=== PATIENT | female | born 1955 | race Caucasian/White ===

== ENCOUNTER → 2017-03-02 | Outpatient (CLI) | payer OTHER ==
--- NOTE | 2017-03-02 22:17 | MR ---
EXAMINATION TYPE: MR lumbar spine wo con DATE OF EXAM: 03/02/2017 3:50 PM COMPARISON: None at this institution. HISTORY: Low back pain and lumbago with sciatica per order. Left-sided back pain extending into left lower extremity for 1.5 years per patient. TECHNIQUE: Multiplanar, multisequence imaging of the lumbar spine is performed without IV contrast. FINDINGS: Sagittal images of the lumbar spine show vertebral body heights to appear satisfactory. Mul tilevel disc desiccation is seen. There is grade 1 retrolisthesis of L5 on S1. There is mild multilev el disc space narrowing. There is moderate disc space narrowing L4-L5 level. There is moderate to adv anced disc space narrowing most pronounced posteriorly L5-S1 level with vacuum disc phenomenon presen t. Small posterior disc herniations are seen L3-L4 through the L5-S1 levels on sagittal images. The c onus medullaris is low in position ending at inferior L2 vertebral body level. No suspicious signal o r clumping of lumbosacral nerve roots is seen. Mild multilevel anterior spurring is present. The bone marrow signal intensity is within normal limits. Axial images show the T12-L1 level to appear within normal limits. Axial images at L1-L2 and L2-L3 level show mild facet degenerative changes bilaterally but spinal can al is preserved and bilateral neural foramina are patent. Axial images at L3-L4 level show mild facet degenerative changes bilaterally. There is mild broad dis c bulge mildly effacing anterior thecal sac and axial image 13. Bilateral neural foramina are patent. Axial images at L4-L5 level show mild/moderate facet degenerative changes and ligamentum flavum hyper trophy with effacement of the posterior lateral thecal sac on axial image 7. There is broad-based pos terior disc protrusion mildly effacing the anterior thecal sac. There is mild bilateral anterior infe rior neural foraminal narrowing at this level identified. Axial images at the L5-S1 level show mild/moderate facet degenerative changes bilaterally with ligame ntum flavum hypertrophy effacing the posterior lateral thecal sac. There is broad-based posterior dis c protrusion mildly effacing anterior thecal sac and axial image 3. There is mild to moderate left an d mild right-sided neural foraminal narrowing at this level identified. There are prominent central parapelvic cysts in the left kidney. IMPRESSION: Multilevel degenerative changes in the lumbar spine most prominent in lower lumbar levels as detailed above however no significant finding is seen to account for patient's left-sided radicul opathy type symptoms.
== END | disposition home or self-care (01) ==
LOC: RADMRIMAIN 14:51
PROVIDERS: ATTEND Nurse Practitioner Family
DX: M47.26 Other spondylosis with radiculopathy, lumbar region (principal)
CPT/HCPCS: 72148

== ENCOUNTER 2017-11-18 08:36 | Emergency (ER) | payer BC, OTHER ==
[2017-11-18 08:41] VITALS: TEMP 98.1
[2017-11-18] MEDS ORDERED: KETOROLAC 30 MG/ML 1 ML VIAL IVP STA (09:15)
[2017-11-18 09:28] LABS: Basophils % (A) 1 %; Eosinophils # (A) 0.1 k/uL (0-0.7); Eosinophils % (A) 1 %; HCT 41.3 % (34.0-46.0); HGB 14.1 gm/dL (11.4-16.0); Lymphocytes # (A) 1.7 k/uL (1.0-4.8); Lymphocytes % (A) 26 %; MCH 31.4 pg (25.0-35.0); MCHC 34.1 g/dL (31.0-37.0); MCV 92.2 fL (80.0-100.0); Mean Platelet Volume 7.3; Monocytes # (A) 0.4 k/uL (0-1.0); Monocytes % (A) 6 %; Neutrophils # (A) 4.1 k/uL (1.3-7.7); Neutrophils % (A) 65 %; Platelet Count 274 k/uL (150-450); RBC 4.47 m/uL (3.80-5.40); RDW 12.6 % (11.5-15.5); WBC 6.3 k/uL (3.8-10.6)
[2017-11-18 09:40] LABS: ALT 36 U/L (9-52); AST 27 U/L (14-36); Albumin 4.4 g/dL (3.5-5.0); Alkaline Phosphatase 59 U/L (38-126); Amylase 61 U/L (30-110); Anion Gap 10 mmol/L; Blood Urea Nitrogen 21 mg/dL (7-17); Calcium 10.7 mg/dL (8.4-10.2); Carbon Dioxide 27 mmol/L (22-30); Chloride 106 mmol/L (98-107); Glucose 90 mg/dL (74-99); Lipase 82 U/L (23-300); Magnesium 2.1 mg/dL (1.6-2.3); Potassium 4.3 mmol/L (3.5-5.1); Sodium 143 mmol/L (137-145); Total Bilirubin 0.5 mg/dL (0.2-1.3); Total Protein 6.7 g/dL (6.3-8.2)
--- NOTE | 2017-11-18 09:53 | XR ---
EXAMINATION TYPE: XR chest 2V DATE OF EXAM: 11/18/2017 HISTORY: Chest Pain. REFERENCE: NONE. FINDINGS: Heart size upper limits of normal. The lungs are clear. Pleural spaces are clear. There is unfolding of the thoracic aorta. IMPRESSION: BORDERLINE CARDIOMEGALY.
[2017-11-18 09:58] LABS: Creatine Kinase 102 U/L (30-135)
[2017-11-18 10:11] LABS: Troponin I <0.012 ng/mL (0.000-0.034)
[2017-11-18 10:13] LABS: D-Dimer 0.31 mg/L FEU (<0.60); Partial Thromboplastin Time 22.1 sec (22.0-30.0)
[2017-11-18 10:33] VITALS: BP 157/97; PULSE 73; RESP 16
--- NOTE | 2017-11-18 11:20 | ED ---
Chest Pain HPI - General Chief Complaint: Chest Pain Stated Complaint: Pain down left arm/chest pain Time Seen by Provider: 11/18/17 08:49 Source: patient, RN notes reviewed Mode of arrival: ambulatory Limitations: no limitations - History of Present Illness Initial Comments: This is a 62-year-old female with a benign past medical history who states she has some left-sided shoulder pain and left arm pain today. She states she woke up with it he states he gets worse with movements especially if she leans on her left shoulder also she has pain radiating from her neck no fevers chills nausea vomiting sweats cough early other complaints at this time. She states is sharp in nature mild in severity. MD Complaint: chest pain, other - Related Data Home Medications Medication Instructions Recorded Confirmed Ibuprofen [Motrin] 800 mg PO Q8H PRN 11/18/17 11/18/17 traMADol HCL [Ultram] 50 mg PO Q4HR PRN 11/18/17 11/18/17 Previous Rx's Medication Instructions Recorded Cyclobenzaprine [Flexeril] 10 mg PO TID #14 tab 11/18/17 Ibuprofen 800 mg PO Q6HR PRN #20 tablet 11/18/17 Allergies Allergy/AdvReac Type Severity Reaction Status Date / Time codeine Allergy Nausea Verified 11/18/17 10:29 Review of Systems ROS Statement: Those systems with pertinent positive or pertinent negative responses have been documented in the HPI. ROS Other: All systems not noted in ROS Statement are negative. EKG Findings - EKG Results: EKG: interpreted by ERMD, sinus rhythm (Sinus rhythm rate of 80. Interval 140 QRS duration 78 QT since QTC 364/[address] configuration.) Past Medical History Additional Past Medical History / Comment(s): sciatica, back pain History of Any Multi-Drug Resistant Organisms: None Reported Past Psychological History: No Psychological Hx Reported Smoking Status: Never smoker Past Alcohol Use History: None Reported Past Drug Use History: None Reported General Exam - General Exam Comments Initial Comments: This is a well-developed well-nourished awake alert oriented 3 female in no acute distress Limitations: no limitations General appearance: alert, in no apparent distress Head exam: Present: atraumatic, normocephalic, normal inspection Eye exam: Present: normal appearance, PERRL, EOMI. Absent: scleral icterus, conjunctival injection, periorbital swelling ENT exam: Present: normal exam, mucous membranes moist Neck exam: Present: normal inspection, tenderness (Some mild tenderness to left lateral trapezius muscles does reproduce some of the patient's pain.). Absent: meningismus, lymphadenopathy Respiratory exam: Present: normal lung sounds bilaterally. Absent: respiratory distress, wheezes, rales, rhonchi, stridor Cardiovascular Exam: Present: regular rate, normal rhythm, normal heart sounds. Absent: systolic murmur, diastolic murmur, rubs, gallop, clicks GI/Abdominal exam: Present: soft, normal bowel sounds. Absent: distended, tenderness, guarding, rebound, rigid Extremities exam: Present: normal inspection, full ROM, tenderness (Is palpation over the left shoulder musculature no sensorimotor vascular deficits or crepitation on palpation), normal capillary refill. Absent: pedal edema, joint swelling, calf tenderness Back exam: Present: normal inspection Neurological exam: Present: alert, oriented X3, CN II-XII intact Psychiatric exam: Present: normal affect, normal mood Skin exam: Present: warm, dry, intact, normal color. Absent: rash Course Vital Signs 11/18/17 11/18/17 08:38 10:33 Temperature 98.1 F Pulse Rate 86 73 Respiratory 20 16 Rate Blood Pressure 181/88 157/97 O2 Sat by Pulse 99 98 Oximetry Chest Pain MDM - MDM I did review the x-ray and report no acute findings. Patient still has some reproducible pain no other pain in his 40s this time the presentation is consistent with a musculoskeletal etiology. I did discuss the findings with the patient she will be discharged and placed on anti-inflammatories I did recommend she do follow-up with her doctor and did recommend outpatient stress test Disposition Clinical Impression: Chest wall syndrome Disposition: HOME SELF-CARE Condition: Good Instructions: Chest Wall Pain (ED), Shoulder Pain (ED) Prescriptions: Cyclobenzaprine [Flexeril] 10 mg PO TID #14 tab Ibuprofen 800 mg PO Q6HR PRN #20 tablet PRN Reason: Pain Referrals: Fadia Sanders MD [Primary Care Provider] - 1-2 days
== END 2017-11-18 11:32 | disposition home or self-care (01) ==
LOC: EC 08:36
DX: R07.1 Chest pain on breathing (principal); M25.512 Pain in left shoulder; Z88.5 Allergy status to narcotic agent
CPT/HCPCS: 36415; 93005; 85379; 83880; 80053; 82150; 82550; 82553; 83690; 83735; 84484; 85025; 85610; 85730; 71046; 99285; 96374; J1885

== ENCOUNTER → 2018-08-01 | Outpatient (CLI) | payer MEDICARE ==
--- NOTE | 2018-08-01 14:12 | BD ---
EXAMINATION TYPE: Axial Bone Density DATE OF EXAM: 08/01/2018 COMPARISON: NONE CLINICAL HISTORY: Height: 65 Weight: 159.5 FRAX RISK QUESTIONS: Alcohol (3 or more units per day): no Family History (Parent hip fracture): yes Glucocorticoids (More than 3mos): no (Ex: prednisone, prednisolone, methylprednisolone, dexamethasone, and hydrocortisone). History of Fracture in Adulthood: no Secondary Osteoporosis: 1. Type 1 Diabetes: no 2. Hyperthyroidism: no 3. Menopause before 45: yes 4. Malnutrition: no 5. Chronic liver disease: no Rheumatoid Arthritis: no Current Tobacco Use: no RISK FACTORS HISTORY OF: Family History of Osteoporosis: no Active: yes Diet low in dairy products/other sources of calcium: yes Postmenopausal woman: hysterectomy age 37 Lost more than 2 inches in height since high school: no Frequent falls: no MEDICATIONS: Motrin 800 as needed Additional History: EXAM MEASUREMENTS: Bone mineral densitometry was performed using the [employer] System. Bone mineral density as measured about the Lumbar spine is: ----- L1-L4(G/cm2): 1.309 T Score Values are as follows: ----- L2: 0.5 ----- L3: 2.1 ----- L4: 1.6 ----- L1-L4: 1.4 Bone mineral density : baseline Bone mineral density about the R hip (g/cm2): 1.032 Bone mineral density about the L hip (g/cm2): 1.028 T Score values are as follows: -----R Neck: 0.0 -----L Neck: -0.1 -----R Total: 0.6 -----L Total: 0.5 Bone mineral density : baseline IMPRESSION: No evidence for osteoporosis or osteopenia. NOTE: T-SCORE=SD OF THE YOUNG ADULT MEAN.
--- NOTE | 2018-08-02 10:07 | MM ---
Reason for exam: screening (asymptomatic). Last mammogram was performed 2 years and 2 months ago. History: Patient is postmenopausal. Family history of breast cancer in aunt at age 60 and breast cancer in aunt at age 53. Reductions of both breasts, 1998. Physical Findings: A clinical breast exam by your physician is recommended on an annual basis and results should be correlated with mammographic findings. MG 3D Screening Mammo W/Cad Bilateral CC and MLO view(s) were taken. Prior study comparison: June 07, 2016, bilateral MG 3d diag mammo w/cad [facility]. December 03, 2014, right breast MG work up mamm w CAD RT. There are scattered fibroglandular densities. There is chronic nodularity in the right breast. Bilateral mammoplasty changes. No significant changes when compared with prior studies. ASSESSMENT: Benign, BI-RAD 2 RECOMMENDATION: Routine screening mammogram of both breasts in 1 year.
== END | disposition home or self-care (01) ==
LOC: RADMAMWWP 06:52
PROVIDERS: ATTEND Family Medicine
DX: Z12.31 Encounter for screening mammogram for malignant neoplasm of breast (principal); Z78.0 Asymptomatic menopausal state
CPT/HCPCS: 77063; 77067; 77080

== ENCOUNTER → 2020-09-16 | Outpatient (CLI) | payer MEDICARE ==
--- NOTE | 2020-09-17 11:33 | MM ---
Reason for exam: screening (asymptomatic). Last mammogram was performed 2 years and 1 month ago. History: Patient is postmenopausal. Family history of breast cancer in aunt at age 60 and breast cancer in aunt at age 53. Reductions of both breasts, 1998. Physical Findings: A clinical breast exam by your physician is recommended on an annual basis and results should be correlated with mammographic findings. MG 3D Screening Mammo W/Cad Bilateral CC and MLO view(s) were taken. Prior study comparison: August 01, 2018, bilateral MG 3d screening mammo w/cad. June 07, 2016, bilateral MG 3d diag mammo w/cad [facility]. There are scattered fibroglandular densities. No significant changes when compared with prior studies. ASSESSMENT: Benign, BI-RAD 2 RECOMMENDATION: Routine screening mammogram of both breasts in 1 year.
== END | disposition home or self-care (01) ==
LOC: RADMAMWWP 08:40
PROVIDERS: ATTEND Family Medicine
DX: Z12.31 Encounter for screening mammogram for malignant neoplasm of breast (principal)
CPT/HCPCS: 77063; 77067

== ENCOUNTER 2020-11-25 11:25 | Emergency (ER) | payer MEDICARE ==
[2020-11-25 11:34] VITALS: RESP 18; TEMP 97.7
[2020-11-25] MEDS ORDERED: LABETALOL 5 MG/ML VIAL MDV IVP STA (11:46)
--- NOTE | 2020-11-25 11:48 | ED ---
General Adult HPI - General Chief complaint: Recheck/Abnormal Lab/Rx Stated complaint: hypertension, lt sided weakness Time Seen by Provider: 11/25/20 11:33 Source: patient Mode of arrival: ambulatory Limitations: no limitations - History of Present Illness Initial comments: Dictation was produced using [email or web address] dictation software. please excuse any grammatical, word or spelling errors. This patient was cared for during a federal and state declared state of emergency secondary to Covid 19 Chief Complaint: 65-year-old feel presents for left-sided body pain and hypertension. History of Present Illness: 65-year-old female she is here in emergency department today for hypertension and left-sided body pain. Patient states she's been having strange left-sided body pain. She states the pain starts in her left trapezius area and sometimes radiates down her arm. She states that she also has pain in her left arm. She believes from Bryanna pressure cuff when she's been checking her blood pressure. She also has pain down by her left proximal calf. No history of DVT. Patient's fingers were dressed that recently because she is to have a colonoscopy tomorrow. She does not take any medications for blood pressure. Patient denies any numbness or paresthesias to the arms or legs. She is not confused. She has no facial symptoms. Patient states that she's been checking her blood pressures at home and has been having consistently high readings for the last month or so. Patient drank coffee regularly. She does have some pain in her body was not severe. Denies any shortness of breath or chest pain. The ROS documented in this emergency department record has been reviewed and confirmed by me. Those systems with pertinent positive or negative responses have been documented in the HPI. All other systems are other negative and/or noncontributory. PHYSICAL EXAM: General Impression: Alert and oriented x3, not in acute distress HEENT: Normocephalic atraumatic, extra-ocular movements intact, pupils equal and reactive to light bilaterally, mucous membranes moist. Cardiovascular: Heart regular rate and rhythm Chest: Able to complete full sentences, no retractions, no tachypnea Abdomen: abdomen soft, non-tender, non-distended, no organomegaly Musculoskeletal: Pulses present and equal in all extremities, no peripheral edema, tenderness to palpation of proximal calf Motor: no focal deficits noted Neurological: CN II-XII grossly intact, no focal motor or sensory deficits noted Skin: Intact with no visualized rashes Psych: Normal affect and mood ED course: 65-year-old female presents to the emergency department for hypertension and left-sided pain. Vital signs upon arrival shows blood pressure 190/104, rest of vital signs within acceptable limits. Laboratory evaluation obtained. CBC, metabolic panel is unremarkable. Ultrasound of the lower extremity shows small tiny popliteal cyst. No DVT. Patient observed in the emergency department for approximately 2 hours with improvement of blood pressure. Patient discharged. Instructed to follow-up with her PCP for outpatient management of blood pressure. EKG interpretation: Ventricular rate 76, sinus rhythm,. 136, QRS 76, QTC 434. No ID prolongation, no QTC prolongation, no ST or T-wave changes noted. EKG compared to 2017 showing no changes. Overall, this EKG is unremarkable - Related Data Home Medications Medication Instructions Recorded Confirmed Ibuprofen [Motrin] 800 mg PO Q8H PRN 11/18/17 11/18/17 traMADol HCL [Ultram] 50 mg PO Q4HR PRN 11/18/17 11/18/17 Previous Rx's Medication Instructions Recorded Cyclobenzaprine [Flexeril] 10 mg PO TID #14 tab 11/18/17 Ibuprofen 800 mg PO Q6HR PRN #20 tablet 11/18/17 Allergies Allergy/AdvReac Type Severity Reaction Status Date / Time codeine Allergy Nausea Verified 11/25/20 11:34 Review of Systems ROS Statement: Those systems with pertinent positive or pertinent negative responses have been documented in the HPI. ROS Other: All systems not noted in ROS Statement are negative. Past Medical History Additional Past Medical History / Comment(s): sciatica injections, back pain History of Any Multi-Drug Resistant Organisms: None Reported Past Surgical History: Section Additional Past Surgical History / Comment(s): breast reduction Past Psychological History: No Psychological Hx Reported Smoking Status: Never smoker Past Alcohol Use History: None Reported Past Drug Use History: None Reported General Exam Limitations: no limitations Course Vital Signs 11/25/20 11:30 Temperature 97.7 F Pulse Rate 93 Respiratory 18 Rate Blood Pressure 194/104 O2 Sat by Pulse 99 Oximetry Medical Decision Making - Lab Data Result diagrams: 11/25/20 11:56 11/25/20 11:56 Lab Results 01/20/21 01/20/21 Range/Units 11:56 11:56 WBC 6.2 (3.8-10.6) k/uL RBC 4.96 (3.80-5.40) m/uL Hgb 15.8 (11.4-16.0) gm/dL Hct 44.9 (34.0-46.0) % MCV 90.5 (80.0-100.0) fL MCH 31.8 (25.0-35.0) pg MCHC 35.1 (31.0-37.0) g/dL RDW 12.5 (11.5-15.5) % Plt Count 247 (150-450) k/uL MPV 7.0 Neutrophils % 57 % Lymphocytes % 32 % Monocytes % 6 % Eosinophils % 2 % Basophils % 1 % Neutrophils # 3.5 (1.3-7.7) k/uL Lymphocytes # 2.0 (1.0-4.8) k/uL Monocytes # 0.4 (0-1.0) k/uL Eosinophils # 0.1 (0-0.7) k/uL Basophils # 0.1 (0-0.2) k/uL Sodium 140 (137-145) mmol/L Potassium 3.9 (3.5-5.1) mmol/L Chloride 105 (98-107) mmol/L Carbon Dioxide 30 (22-30) mmol/L Anion Gap 5 mmol/L BUN 10 (7-17) mg/dL Creatinine 0.71 (0.52-1.04) mg/dL Est GFR (CKD-EPI)AfAm >90 (>60 ml/min/1.73 sqM) Est GFR (CKD-EPI)NonAf 89 (>60 ml/min/1.73 sqM) Glucose 96 (74-99) mg/dL Calcium 10.0 (8.4-10.2) mg/dL Disposition Clinical Impression: Hypertension Disposition: HOME SELF-CARE Condition: Good Instructions (If sedation given, give patient instructions): Hypertension (ED) Is patient prescribed a controlled substance at d/c from ED?: No Referrals: Fadia Sanders MD [Primary Care Provider] - 1-2 days Time of Disposition: 12:59
[2020-11-25 12:02] LABS: Basophils # (A) 0.1 k/uL (0-0.2); Basophils % (A) 1 %; Eosinophils # (A) 0.1 k/uL (0-0.7); Eosinophils % (A) 2 %; HCT 44.9 % (34.0-46.0); HGB 15.8 gm/dL (11.4-16.0); Lymphocytes % (A) 32 %; MCH 31.8 pg (25.0-35.0); MCHC 35.1 g/dL (31.0-37.0); MCV 90.5 fL (80.0-100.0); Monocytes # (A) 0.4 k/uL (0-1.0); Monocytes % (A) 6 %; Neutrophils # (A) 3.5 k/uL (1.3-7.7); Neutrophils % (A) 57 %; Platelet Count 247 k/uL (150-450); RBC 4.96 m/uL (3.80-5.40); RDW 12.5 % (11.5-15.5); WBC 6.2 k/uL (3.8-10.6)
[2020-11-25 12:10] LABS: African American GFR (CKD) >90 (>60 ml/min/1.73 sqM); Anion Gap 5 mmol/L; Blood Urea Nitrogen 10 mg/dL (7-17); Carbon Dioxide 30 mmol/L (22-30); Chloride 105 mmol/L (98-107); Glucose 96 mg/dL (74-99); Non-African American GFR(CKD) 89 (>60 ml/min/1.73 sqM); Potassium 3.9 mmol/L (3.5-5.1); Sodium 140 mmol/L (137-145)
--- NOTE | 2020-11-25 12:52 | US ---
EXAMINATION TYPE: US venous doppler duplex LE LT DATE OF EXAM: 11/25/2020 12:44 PM COMPARISON: NONE CLINICAL HISTORY: calf pain, dvt suspected. Left calf pain x 1 week SIDE PERFORMED: Left TECHNIQUE: The lower extremity deep venous system is examined utilizing real time linear array sonog bailey with graded compression, doppler sonography and color-flow sonography. VESSELS IMAGED: Common Femoral Vein Deep Femoral Vein Greater Saphenous Vein * Femoral Vein Popliteal Vein Small Saphenous Vein * Proximal Calf Veins (* superficial vessels) Left Leg: Appears negative for DVT IMPRESSION: 1. Left lower extremity ultrasound negative for deep venous thrombosis. 2. Tiny popliteal cyst left posterior fossa
[2020-11-25 14:01] VITALS: BP 141/80; PULSE 87
== END 2020-11-25 13:25 | disposition home or self-care (01) ==
LOC: EC 11:25
DX: I10 Essential (primary) hypertension (principal); M71.22 Synovial cyst of popliteal space [Baker], left knee; M79.602 Pain in left arm; Z88.5 Allergy status to narcotic agent
CPT/HCPCS: 36415; 80048; 85025; 93005; 96374; 99285

== ENCOUNTER → 2021-08-31 | Outpatient (CLI) | payer MEDICARE ==
--- NOTE | 2021-08-31 12:30 | BD ---
EXAMINATION TYPE: Axial Bone Density DATE OF EXAM: 08/31/2021 COMPARISON: DEXA bone scan October 31, 2018 CLINICAL HISTORY: Postmenopausal female. Height: 5 FT 5 IN Weight: 176 FRAX RISK QUESTIONS: Alcohol (3 or more units per day): NO Family History (Parent hip fracture): NO Glucocorticoids (More than 3mos): NO (Ex: prednisone, prednisolone, methylprednisolone, dexamethasone, and hydrocortisone). History of Fracture in Adulthood: NO Secondary Osteoporosis: 1. Type 1 Diabetes: NO 2. Hyperthyroidism: NO 3. Menopause before 45: PART [facility] AGE 37 Doesn't REMEMBER ANY SYMPTOMS OF MENOPAUSE 4. Malnutrition: NO 5. Chronic liver disease: NO Rheumatoid Arthritis: YES Current Tobacco Use: NO RISK FACTORS HISTORY OF: Surgery to Spine/Hip(right/left)/Wrist (right/left): NO Family History of Osteoporosis: NO Active: YES Diet low in dairy products/other sources of calcium: NO Postmenopausal woman: [facility] AGE 37 Take estrogen and/or progesterone medications: NO Lost more than 2 inches in height since high school: NO MEDICATIONS: Additional Medications: TRAMADOL, MOBIC, BLOOD PRESSURE MEDS Additional History: EXAM MEASUREMENTS: Bone mineral densitometry was performed using the [employer] System. Bone mineral density as measured about the Lumbar spine is: ----- L1-L4(G/cm2): 1.340 T Score Values are as follows: ----- L2: -0.3 ----- L3: 2.9 ----- L4: 2.5 ----- L1-L4: 1.3 Bone mineral density has: INCREASED 3.2 % since study of: 2017 Bone mineral density about the R hip (g/cm2): 0.978 Bone mineral density about the L hip (g/cm2): 0.955 T Score values are as follows: -----R Neck: -0.4 -----L Neck: -0.6 -----R Total: 0.7 -----L Total: 0.4 Bone mineral density has: DECREASED -0.6 % since study of: 2017 IMPRESSION: Normal (Values between +1 and -1 indicate normal bone mass). Consider repeating this study in 5 year s or sooner if there is some new clinical indication. NOTE: T-SCORE=SD OF THE YOUNG ADULT MEAN.
== END | disposition home or self-care (01) ==
LOC: RADBDWWP 10:19
PROVIDERS: ATTEND Family Medicine
DX: Z78.0 Asymptomatic menopausal state (principal); M06.9 Rheumatoid arthritis, unspecified
CPT/HCPCS: 77080

== ENCOUNTER → 2022-10-07 | Outpatient (CLI) | payer MEDICARE ==
--- NOTE | 2022-10-10 08:37 | MM ---
Reason for Exam: Screening (asymptomatic). Last mammogram was performed 1 year(s) and 1 month(s) ago. Patient History: Menarche at age 9. First Full-Term at age 14. Hysterectomy at age 37. Postmenopausal. 1997, Bilateral Reduction. Maternal aunt had breast cancer, age 60. Maternal aunt had breast cancer, age 53. Risk Values: Cheryl 5 year model risk: 1.4%. NCI Lifetime model risk: 4.2%. Prior Study Comparison: 03/14/2002 Bilateral Screening Mammogram, [facility]. 05/31/2005 Bilateral Diagnostic Mammogram, [facility]. 05/04/2007 Bilateral Diagnostic Mammogram, [facility]. 04/03/2009 Bilateral Diagnostic Mammogram, [facility]. 11/27/2014 Bilateral Screening Mammogram, [facility]. 12/03/2014 Right Diagnostic Mammogram, [facility]. 12/03/2014 Right Diagnostic Ultrasound, [facility]. 06/07/2016 Bilateral Diagnostic Mammogram, [facility]. 06/07/2016 Left Diagnostic Ultrasound, [facility]. 08/01/2018 Bilateral Screening Mammogram, [facility]. 09/16/2020 Bilateral Screening Mammogram, [facility]. 09/23/2021 Bilateral MG screening mammo w CAD - 2, [facility] [place]. Tissue Density: There are scattered fibroglandular densities. Findings: Analyzed By CAD. There is no suspicious group of microcalcifications or new suspicious mass in either breast. Overall Assessment: Negative, BI-RAD 1 Management: Screening Mammogram of both breasts in 1 year. A clinical breast exam by your physician is recommended on an annual basis and results should be correlated with mammographic findings. [facility] will attempt to contact patient to return for supplemental views and ultrasound if indicated. Electronically signed and approved by: Joo Guy DO
== END | disposition home or self-care (01) ==
LOC: RADMAMWWP 11:38
PROVIDERS: ATTEND Student in an Organized Health Care Education/Training Program
DX: Z12.31 Encounter for screening mammogram for malignant neoplasm of breast (principal); Z78.0 Asymptomatic menopausal state; Z80.3 Family history of malignant neoplasm of breast
CPT/HCPCS: 77063; 77067

== ENCOUNTER → 2023-10-26 | Outpatient (CLI) | payer MEDICARE ==
--- NOTE | 2023-10-31 19:17 | MM ---
Reason for Exam: Screening (asymptomatic). Last screening mammogram was performed 12 month(s) ago. Patient History: Menarche at age 9. First Full-Term at age 14. Hysterectomy at age 37. Postmenopausal. 1997, Bilateral Reduction. Paternal aunt had breast cancer, age 60. Paternal aunt had breast cancer, age 53. Risk Values: Cheryl 5 year model risk: 1.4%. NCI Lifetime model risk: 4.0%. Prior Study Comparison: 08/01/2018 Bilateral Screening Mammogram, [facility]. 09/16/2020 Bilateral Screening Mammogram, [facility]. 09/23/2021 Bilateral MG screening mammo w CAD - 2, [facility]. 10/07/2022 Bilateral MG 3D screening mammo w/cad, [facility]. Tissue Density: There are scattered fibroglandular densities. Findings: Analyzed By CAD. Chronic nodularity right breast. There is no suspicious group of microcalcifications or new suspicious mass in either breast. Overall Assessment: Benign, BI-RAD 2 Management: Screening Mammogram of both breasts in 1 year. . Patient should continue monthly self-breast exams. A clinical breast exam by your physician is recommended on an annual basis. This exam should not preclude additional follow-up of suspicious palpable abnormalities. Note on Cheryl scores and lifetime risk: 1. A Cheryl score greater than 3% is considered moderate risk. If this is the case, consider specialist referral to assess eligibility for a risk reducing agent. 2. If overall lifetime risk for the development of breast cancer is 20% or higher, the patient may qualify for future screening with alternating mammogram and breast MRI. Electronically signed and approved by: Shahrzad Shafer M.D. Radiologist
== END | disposition home or self-care (01) ==
LOC: RADMAMWWP 07:04
PROVIDERS: ATTEND Student in an Organized Health Care Education/Training Program
DX: Z12.31 Encounter for screening mammogram for malignant neoplasm of breast (principal); Z78.0 Asymptomatic menopausal state; Z80.3 Family history of malignant neoplasm of breast
CPT/HCPCS: 77063; 77067